=== PATIENT | female | born 1965 | race Caucasian/White ===

== ENCOUNTER → 2024-06-04 13:03 | Outpatient (REF) | payer OTHER, SELFPAY | LOC: WDC 13:03 | PROVIDERS: ATTENDING PHYSICIAN Physician Assistant Medical | DX: Z12.31 Encounter for screening mammogram for malignant neoplasm of breast (principal) | CPT/HCPCS: 77063; 77067 ==

== ENCOUNTER → 2025-05-29 14:28 | Outpatient (REF) | payer OTHER, SELFPAY | LOC: HWRAD 14:28 | PROVIDERS: ATTENDING PHYSICIAN Physician Assistant Medical | DX: M79.604 Pain in right leg (principal) | CPT/HCPCS: 73590 ==